=== PATIENT | female | born 1990 | race Caucasian/White ===

== ENCOUNTER 2017-10-22 14:27 | Emergency (ER) | payer MEDICAID ==
[2017-10-22 14:33] VITALS: BP 158/110
--- NOTE | 2017-10-22 15:26 | EDPHY ---
H & P Time Seen by Provider: 10/22/17 14:54 HPI/ROS: Chief complaint. Vomiting, detox HPI. Patient is 27-year-old female presents emergency department with complaint vomiting and diarrhea that began at 2:00 a.m.. She tells me that she is coming off Suboxone because she does not feel she needs any more. She had been on Suboxone about 3 weeks however had been taking it irregularly because she was getting it from a friend. She tried to nipple a dose of Suboxone this morning but threw it up. Her last regular dose is not remembered by the patient. ROS Constitutional. no fever/chills, no weakness Eyes. no problems with vision ENT. no sore throat, no nasal drainage Cardiovascular. no chest pain Respiratory. no shortness of breath, no cough Abdominal. Abdominal pain with vomiting and diarrhea . Decreased urination MS. no calf pain/swelling, no neck/back pain, no joint pain Skin. no rash Lymph. no swollen glands Neuro. no headache, no dizziness, no difficulty walking or with speech Past Medical/Surgical History: Hypertension, chronic pain, herniated back disc Social History: Single, daily smoker, no alcohol Smoking Status: Current every day smoker Physical Exam: General Appearance: Alert well-developed female mild distress vital signs are stable though initial blood pressure 158/110 Eyes: Pupils equal and round no pallor or injection. ENT, mucous membranes are dry Respiratory: There are no retractions, lungs are clear to auscultation. Cardiovascular: Regular rate and rhythm. Gastrointestinal: Abdomen is soft with right upper quadrant tenderness. No masses. No organomegaly. Some right flank tenderness as well Neurological: Awake and alert, sensory and motor exams grossly normal. Skin: Warm and dry, no rashes. Musculoskeletal: Neck is supple nontender. Extremities symmetrical, full range of motion. Psychiatric: Patient is oriented X 3, there is no agitation. Constitutional: Initial Vital Signs Temperature (C) 37.0 C 10/22/17 14:31 Heart Rate 62 10/22/17 14:31 Respiratory Rate 18 10/22/17 14:31 Blood Pressure 158/110 H 10/22/17 14:31 O2 Sat (%) 100 10/22/17 14:31 O2 Delivery Mode Room Air Allergies/Adverse Reactions: No Known Allergies Allergy (Verified 10/22/17 14:29) Home Medications: Medication Instructions Recorded LORazepam [Ativan] 1 mg PO Q6-8PRN PRN #10 tab 10/22/17 Ondansetron Odt [Zofran Odt] 4 mg PO Q4PRN PRN #4 tab 10/22/17 clonIDINE [Catapres (*)] 0.2 mg PO BID #7 tab 10/22/17 Medical Decision Making Procedures: IV normal saline with initial target of 2 L. Zofran for nausea Clonidine orally ED Course/Re-evaluation: Re-evaluation at 4:30 p.m.. Patient is stable. Her abdomen is feeling better with decreasing pain. She is taking oral ice chips. She complains of some anxiety now. She will be given and oral Ativan Re-evaluation patient is doing well at 5:55 p.m.. She and I discussed laboratory evaluation, treatment plan including criteria for return importance of follow-up and further evaluation. She expresses understanding and agreement Differential Diagnosis: Vomiting and diarrhea and diffuse abdominal pain in the face of narcotic withdrawal. I think that this is more likely to be caused by narcotic withdrawal then gastroenteritis. No evidence for acute abdomen - Data Points Laboratory Results: Laboratory Results 10/22/17 14:54 10/22/17 16:00 10/22/17 10/22/17 10/22/17 17:30 16:00 16:00 WBC RBC Hgb Hct MCV MCH MCHC RDW Plt Count MPV Neut % (Auto) Lymph % (Auto) Bill[place] % (Auto) Eos % (Auto) Baso % (Auto) Nucleat RBC Rel Count Absolute Neuts (auto) Absolute Lymphs (auto) Absolute Monos (auto) Absolute Eos (auto) Absolute Basos (auto) Absolute Nucleated RBC Immature Gran % Immature Gran # Sodium 139 mEq/L mEq/L (135-145) Potassium 4.0 mEq/L mEq/L (3.3-5.0) Chloride 100 mEq/L mEq/L (97-110) Carbon Dioxide 21 mEq/l L mEq/l (22-31) Anion Gap 18 mEq/L H mEq/L (8-16) BUN 6 mg/dL L mg/dL (7-23) Creatinine 0.5 mg/dL L mg/dL (0.6-1.0) Estimated GFR > 60 Glucose 131 mg/dL H mg/dL (70-100) Calcium 9.1 mg/dL mg/dL (8.5-10.4) Lipase 21 IU/L L IU/L (23-300) Beta HCG, Qual NEGATIVE Urine Color COLORLESS Urine Appearance CLEAR Urine pH 7.0 (5.0-7.5) Ur Specific [place] 1.004 (1.002-1.030) Urine Protein NEGATIVE (NEGATIVE) Urine Ketones NEGATIVE (NEGATIVE) Urine Blood NEGATIVE (NEGATIVE) Urine Nitrate NEGATIVE (NEGATIVE) Urine Bilirubin NEGATIVE (NEGATIVE) Urine Urobilinogen NEGATIVE EU EU (0.2-1.0) Ur Leukocyte Esterase NEGATIVE (NEGATIVE) Urine RBC 1-3 /hpf /hpf (0-3) Urine WBC 1-3 /hpf /hpf (0-3) Ur Epithelial Cells TRACE /lpf /lpf (NONE-1+) Urine Mucus TRACE /lpf /lpf (NONE-1+) Urine Glucose 2+ H (NEGATIVE) 10/22/17 14:54 WBC 16.06 10^3/uL H 10^3/uL (3.80-9.50) RBC 4.61 10^6/uL 10^6/uL (4.18-5.33) Hgb 14.9 g/dL g/dL (12.6-16.3) Hct 42.6 % % (38.0-47.0) MCV 92.4 fL fL (81.5-99.8) MCH 32.3 pg pg (27.9-34.1) MCHC 35.0 g/dL g/dL (32.4-36.7) RDW 12.0 % % (11.5-15.2) Plt Count 504 10^3/uL H 10^3/uL (150-400) MPV 10.5 fL fL (8.7-11.7) Neut % (Auto) 90.5 % H % (39.3-74.2) Lymph % (Auto) 6.8 % L % (15.0-45.0) Billings % (Auto) 2.1 % L % (4.5-13.0) Eos % (Auto) 0.0 % L % (0.6-7.6) Baso % (Auto) 0.2 % L % (0.3-1.7) Nucleat RBC Rel Count 0.0 % % (0.0-0.2) Absolute Neuts (auto) 14.51 10^3/uL H 10^3/uL (1.70-6.50) Absolute Lymphs (auto) 1.10 10^3/uL 10^3/uL (1.00-3.00) Absolute Monos (auto) 0.34 10^3/uL 10^3/uL (0.30-0.80) Absolute Eos (auto) 0.00 10^3/uL L 10^3/uL (0.03-0.40) Absolute Basos (auto) 0.04 10^3/uL 10^3/uL (0.02-0.10) Absolute Nucleated RBC 0.00 10^3/uL 10^3/uL (0-0.01) Immature Gran % 0.4 % % (0.0-1.1) Immature Gran # 0.07 10^3/uL 10^3/uL (0.00-0.10) Sodium Potassium Chloride Carbon Dioxide Anion Gap BUN Creatinine Estimated GFR Glucose Calcium Lipase Beta HCG, Qual Urine Color Urine Appearance Urine pH Ur Specific [place] Urine Protein Urine Ketones Urine Blood Urine Nitrate Urine Bilirubin Urine Urobilinogen Ur Leukocyte Esterase Urine RBC Urine WBC Ur Epithelial Cells Urine Mucus Urine Glucose Medications Given: Discontinued Medications Clonidine (Catapres-Tts) 0.3 mg TD EDNOW ONE Stop: 10/22/17 15:37 Last Admin: 10/22/17 16:34 Dose: 0.3 mg Sodium Chloride (Ns) 1,000 mls @ 0 mls/hr IV EDNOW ONE; Wide Open PRN Reason: Protocol Stop: 10/22/17 15:37 Last Admin: 10/22/17 15:10 Dose: 1,000 mls Sodium Chloride (Ns) 1,000 mls @ 0 mls/hr IV EDNOW ONE; Wide Open PRN Reason: Protocol Stop: 10/22/17 15:37 Last Admin: 10/22/17 16:57 Dose: 1,000 mls Lorazepam (Ativan) 1 mg PO EDNOW ONE Stop: 10/22/17 16:34 Last Admin: 10/22/17 16:56 Dose: 1 mg Ondansetron HCl (Zofran) 4 mg IVP EDNOW ONE Stop: 10/22/17 15:37 Last Admin: 10/22/17 15:44 Dose: 4 mg Departure - Departure Disposition: Home, Routine, Self-Care Clinical Impression: Abdominal pain Qualifiers: Abdominal location: generalized Qualified Code(s): R10.84 - Generalized abdominal pain Condition: Good Instructions: Abdominal Pain (ED) Additional Instructions: Frequent, small sips fluids while nauseated. Gradual diet advancement Zofran as needed for nausea and vomiting using 1 pill every 4-6 hours. Ativan can help with anxiety and withdrawal symptoms Clonidine can also help with withdrawal type symptoms Return for worsening symptoms. Recheck in 2 days if not improved Referrals: NONE *PRIMARY CARE P,. [Primary Care Provider] - As per Instructions Prescriptions: clonIDINE [Catapres (*)] 0.2 mg PO BID #7 tab LORazepam [Ativan] 1 mg PO Q6-8PRN PRN #10 tab PRN Reason: Anxiety Ondansetron Odt [Zofran Odt] 4 mg PO Q4PRN PRN #4 tab PRN Reason: Nausea/Vomiting, Use 1st
[2017-10-22] MEDS ORDERED: NS 1,000 ML IV ONE ×2 (15:36)
[2017-10-22] MEDS ORDERED: ONDANSETRON 4 MG/2 ML VIAL IVP ONE (15:36)
[2017-10-22 15:49] LABS: PLATELET COUNT 504 10^3/uL (150-400)
[2017-10-22] MEDS ORDERED: LORazepam 1 MG TAB PO ONE (16:33)
--- NOTE | 2017-10-22 18:18 | ASDISCHSUM ---
Discharge Information Plan Status:Home with No Needs Medically Cleared to Leave: Discharge Date: CM D/C Disposition:Home, Routine, Self-Care ADT D/C Disposition:Home, Routine, Self-Care Projected Discharge Date: Transportation at D/C:Family Discharge Delay Reason: Follow-Up Date: Discharge Slot: Final Diagnosis: Placement Information Patient Contact Information Contact Name:GLENDA Relationship:Mother Address:[address] [place] [address] Home Phone: City:[facility] Phone: State/Zip Code:[place] [address] Email: Financial Information Financial Class:Medicaid Primary Plan Desc:[employer] Primary Plan Number:[id number] Secondary Plan Desc: Secondary Plan Number: Assessment Information [facility] Progress Note CM Note CM Note Notes: Pt presented to the ED for N/V/D related to Suboxone withdrawal. Pt reported she had been taking Suboxone for about 3 weeks but irregularly due to not having an actual Rxn and getting it from a friend. CM went to speak to patient provide outpatient followup resources but pt had already left the ED and pt's mother, Arpita, was in the room. Arpita said patient was out in the car because she was "freezing" and that she just needed pt's prescriptions because she is having another family emergency and needs to leave now. This was relayed to the ED RN. This CM provided Arpita with various outpatient substance abuse resources, including [facility] and other facilities that accept Medicaid. CM available for further assistance if needed. Date Signed: 10/22/2017 06:16 PM Electronically Signed By:Sandra Sheppard RN Intervention Information Intervention Type:Community Resources Date of Service:10/22/2017 06:16 PM Patient Type:Emergency Room Staff Member:SUMI Sheppard Sharon Hours:0.25 Discipline:Director Translation Severity: Comment:
== END 2017-10-22 18:19 | disposition home or self-care (01) ==
DX: R10.84 Generalized abdominal pain (principal); E86.9 Volume depletion, unspecified; I10 Essential (primary) hypertension; F17.200 Nicotine dependence, unspecified, uncomplicated
CPT/HCPCS: 96374; J2405